=== PATIENT | male | born 1935 | race Caucasian/White ===

== ENCOUNTER → 2018-05-26 | Outpatient (CLI) | payer MEDICARE, BC ==
[~2018-05-26] MED LIST: ASPI-515 PO; ATOR10TA PO; CLON0.1T PO; CLON0.3T47 PO; LISI40TA PO; LISI5TAB7 PO; METO25TA35 PO; MULT-257 PO
== END | disposition home or self-care (01) ==
LOC: CVU 15:38
PROVIDERS: ATTEND Internal Medicine Cardiovascular Disease
DX: I65.21 Occlusion and stenosis of right carotid artery (principal); I10 Essential (primary) hypertension
CPT/HCPCS: 93880

== ENCOUNTER → 2018-05-27 | Outpatient (CLI) | payer MEDICARE, BC | END | disposition home or self-care (01) | LOC: CFH 15:06 | PROVIDERS: ATTEND Internal Medicine Cardiovascular Disease | DX: I34.0 Nonrheumatic mitral (valve) insufficiency (principal); I10 Essential (primary) hypertension; E78.5 Hyperlipidemia, unspecified; Z95.1 Presence of aortocoronary bypass graft; Z95.0 Presence of cardiac pacemaker; Z95.2 Presence of prosthetic heart valve | CPT/HCPCS: 93306 ==

== ENCOUNTER 2018-12-09 12:48 | Emergency (ER) | payer MEDICARE, BC ==
[~2018-12-09 12:48] MED LIST changes: -CLON0.1T PO; +CLON0.1T22 PO
--- NOTE | 2018-12-09 13:05 | NUR ---
EKG AT THE BEDSIDE
--- NOTE | 2018-12-09 13:11 | NUR ---
cxr at the bedside.
--- NOTE | 2018-12-09 13:13 | NUR ---
phlebotomy is at the bedside for blood sampling
[2018-12-09 13:42] LABS: ALBUMIN 4.2 g/dL (3.4-5.0); ANION GAP 4 mmol/L (5-15); CALCIUM 8.8 mg/dL (8.5-10.1); CHLORIDE 109 mmol/L (98-107); CREATININE 1.16 mg/dL (0.7-1.3)
[2018-12-09 13:43] LABS: BASOPHILS # (AUTO) 0.03 x10^3/uL (0-0.1); BASOPHILS % (AUTO) 0 % (0-1); EOSINOPHILS # (AUTO) 0.09 x10^3/uL (0-0.4); EOSINOPHILS % (AUTO) 1 % (1-7); LYMPHOCYTES # (AUTO) 0.88 x10^3/uL (1-3.4); LYMPHOCYTES % (AUTO) 12 % (22-44); MD NO; MEAN CORPUSCULAR HEMOGLOBIN 29.1 pg (27.5-34.5); MEAN CORPUSCULAR HGB CONC 32.4 g/dL (33.2-36.2); MEAN CORPUSCULAR VOLUME 89.8 fL (81-97); MEAN PLATELET VOLUME 8.5 fL (7.4-10.4); MONOCYTES # (AUTO) 0.66 x10^3/uL (0.2-0.8); MONOCYTES % (AUTO) 9 % (2-9); NEUTROPHILS # (AUTO) 5.65 x10^3/uL (1.8-6.8); NEUTROPHILS % (AUTO) 77 % (42-75); PLATELET COUNT 140 x10^3/uL (130-400); RED BLOOD COUNT 5.45 x10^6/uL (4.38-5.82); RED CELL DISTRIBUTION WIDTH 14.3 % (9.4-14.8)
[2018-12-09 13:46] LABS: TROPONIN I < 0.015 ng/mL (0.000-0.045)
[2018-12-09 14:31] VITALS: BP 161/84
== END 2018-12-09 14:32 | disposition home or self-care (01) ==
LOC: ED 13:18
DX: I11.9 Hypertensive heart disease without heart failure (principal); I25.2 Old myocardial infarction; Z95.1 Presence of aortocoronary bypass graft; Z95.0 Presence of cardiac pacemaker; Z95.4 Presence of other heart-valve replacement
CPT/HCPCS: 36415; 71045; 80048; 82040; 83880; 84484; 85025; 93005; 99284

== ENCOUNTER → 2020-02-21 | Outpatient (CLI) | payer MEDICARE, BC ==
[~2020-02-21] MED LIST changes: +CLON0.3T PO; -CLON0.3T47 PO
== END | disposition home or self-care (01) ==
LOC: CVU 13:09
PROVIDERS: ATTEND Surgery Vascular Surgery
DX: I65.23 Occlusion and stenosis of bilateral carotid arteries (principal)
CPT/HCPCS: 93880

== ENCOUNTER 2020-03-02 10:15 | Emergency (ER) | payer MEDICARE, BC ==
[~2020-03-02] VITALS: Ht 172.7 cm; Wt 75.0 kg
--- NOTE | 2020-03-02 10:46 | NUR ---
first contact with pt. per pt's daughter, pt is more confused, change in balance recently. pt's pmd suspects hydrocephalus and oldered mri for pt but it takes a long time untill robert date. pt's daughter would like to make sure pt's is ok. hx of dementia, but pt's aox4. resps even and unlabored. bp/spo2 monitors in place. call lightwithin reach. edmd at bedside evaluating at this time.
[2020-03-02] MEDS ORDERED: SERT50TA28 PO (10:49)
[2020-03-02] MEDS ORDERED: ASPI-515 PO (10:50)
[2020-03-02] MEDS ORDERED: MEMA10TA PO (10:50)
[2020-03-02] MEDS ORDERED: CHOL10003 PO (10:51)
[2020-03-02] MEDS ORDERED: ATOR40TA78 PO (10:51)
[2020-03-02] MEDS ORDERED: LISI-170 PO (10:51)
[2020-03-02] MEDS ORDERED: FURO20TA3 PO (10:52)
[2020-03-02] MEDS ORDERED: APIX5TAB PO (10:52)
[2020-03-02] MEDS ORDERED: CLON0.1T22 PO (10:52)
[2020-03-02] MEDS ORDERED: ACET-458 PO (10:53)
[2020-03-02] MEDS ORDERED: POTA10TA31 PO (10:53)
[2020-03-02] MEDS ORDERED: SENN1TAB59 PO (10:54)
--- NOTE | 2020-03-02 10:54 | NUR ---
pt to ct at this time.
--- NOTE | 2020-03-02 11:04 | NUR ---
pt back to room from ct at this time.
[2020-03-02 11:28] LABS: BASOPHILS # (AUTO) 0.02 x10^3/uL (0-0.1); BASOPHILS % (AUTO) 0 % (0-1); EOSINOPHILS # (AUTO) 0.16 x10^3/uL (0-0.4); EOSINOPHILS % (AUTO) 2 % (1-7); LYMPHOCYTES # (AUTO) 0.76 x10^3/uL (1-3.4); LYMPHOCYTES % (AUTO) 11 % (22-44); MD NO; MEAN CORPUSCULAR HEMOGLOBIN 29.2 pg (27.5-34.5); MEAN CORPUSCULAR HGB CONC 32.2 g/dL (33.2-36.2); MEAN CORPUSCULAR VOLUME 90.8 fL (81-97); MONOCYTES # (AUTO) 0.67 x10^3/uL (0.2-0.8); MONOCYTES % (AUTO) 10 % (2-9); NEUTROPHILS # (AUTO) 5.29 x10^3/uL (1.8-6.8); NEUTROPHILS % (AUTO) 77 % (42-75); PLATELET COUNT 145 x10^3/uL (130-400); RED BLOOD COUNT 5.23 x10^6/uL (4.38-5.82); RED CELL DISTRIBUTION WIDTH 15.4 % (9.4-14.8)
--- NOTE | 2020-03-02 11:46 | NUR ---
pt resting in [facility]. pt's aox4. resps even and unlabored. bp/spo2 monitors in place. call light within reach. pt's daughter at bedside.
--- NOTE | 2020-03-02 12:01 | NUR ---
i am assuming care of this pt from jorge (rn) while she has a lunch break. sbar was exchanged at the bedside.
[2020-03-02 12:09] LABS: ALBUMIN 3.3 g/dL (3.4-5.0); ANION GAP 8 mmol/L (5-15); CALCIUM 8.5 mg/dL (8.5-10.1); CHLORIDE 112 mmol/L (98-107); CREATININE 1.31 mg/dL (0.7-1.3)
[2020-03-02 12:37] VITALS: BP 125/68
--- NOTE | 2020-03-02 12:37 | NUR ---
pt using urinal at this time. pt stated"i don't know i can." pt and pt's daughter refused cath. edmd notified.
--- NOTE | 2020-03-02 13:19 | NUR ---
pt's straightcath'd using sterile technique. pt and pt's daughter agreed with this procedure. urine collected and ua sent.
[2020-03-02 13:28] LABS: MICROSCOPIC AUTO
--- NOTE | 2020-03-02 14:21 | NUR ---
Patient given discharge instructions and they have confirmed that they understand the instructions.
== END 2020-03-02 14:22 | disposition home or self-care (01) ==
LOC: ED 10:51
DX: F01.50 Vascular dementia, unspecified severity, without behavioral disturbance, psychotic disturbance, mood disturbance, and anxiety (principal); R26.89 Other abnormalities of gait and mobility; I25.10 Atherosclerotic heart disease of native coronary artery without angina pectoris; I48.91 Unspecified atrial fibrillation; I10 Essential (primary) hypertension; Z95.0 Presence of cardiac pacemaker
CPT/HCPCS: 36415; 70450; 80048; 81001; 82040; 85025; 99284

== ENCOUNTER 2020-05-15 06:05 | Day surgery (SDC) | payer MEDICARE, BC ==
[~2020-05-15] VITALS: Ht 172.7 cm; Wt 71.4 kg
[~2020-05-15 06:05] MED LIST changes: +ACET-458 PO; +APIX5TAB PO; +ATOR40TA78 PO; +CHOL10003 PO; +FURO20TA3 PO; +LISI-170 PO; +MEMA10TA PO; +POTA10TA31 PO; +SENN1TAB59 PO; +SERT50TA28 PO
[2020-05-15 06:44] VITALS: BP 143/76
[2020-05-15] MEDS ORDERED: AMLO-150 PO (06:56)
[2020-05-15] MEDS ORDERED: Metoprolol PO (06:57)
[2020-05-15 07:10] LABS: INTERNATIONAL NORMALIZED RATIO 1.27 (0.93-1.1); PROTHROMBIN TIME 13.4 Seconds (9.6-11.5)
[2020-05-15 07:12] LABS: CREATININE 1.12 mg/dL (0.7-1.3)
[2020-05-15 07:30] LABS: ANION GAP 4 mmol/L (5-15); CHLORIDE 110 mmol/L (98-107)
[2020-05-15] MEDS ORDERED: PROPOFOL 10 MG/ML, 20ML ONE (10:15)
== END 2020-05-15 09:30 | disposition home or self-care (01) ==
LOC: CVU 06:05 → CACL 09:30
PROVIDERS: ATTEND Internal Medicine Cardiovascular Disease
DX: I48.91 Unspecified atrial fibrillation (principal); I08.1 Rheumatic disorders of both mitral and tricuspid valves; I27.20 Pulmonary hypertension, unspecified; I25.10 Atherosclerotic heart disease of native coronary artery without angina pectoris; I65.23 Occlusion and stenosis of bilateral carotid arteries; I10 Essential (primary) hypertension; E78.49 Other hyperlipidemia; F03.90 Unspecified dementia, unspecified severity, without behavioral disturbance, psychotic disturbance, mood disturbance, and anxiety; E66.3 Overweight; Z68.25 Body mass index [BMI] 25.0-25.9, adult; Z79.01 Long term (current) use of anticoagulants; Z79.82 Long term (current) use of aspirin; Z79.899 Other long term (current) drug therapy; Z95.0 Presence of cardiac pacemaker; Z95.1 Presence of aortocoronary bypass graft; Z95.2 Presence of prosthetic heart valve
CPT/HCPCS: 36415; 80048; 85610; 92960; 93306; J2704

== ENCOUNTER 2020-06-02 15:46 | Emergency (ER) | payer MEDICARE, BC ==
[~2020-06-02] VITALS: Ht 175.3 cm; Wt 75.0 kg
[~2020-06-02 15:46] MED LIST changes: +AMLO-150 PO; +Metoprolol PO
--- NOTE | 2020-06-02 16:08 | NUR ---
THIS IS A 84 YEAR OLD FEMALE WHO WAS BIB BY DAUGHTER FROM A [facility]. PT HAD GLF X 4 DAYS AGO. C/O LBP AND LOWER BACK PAIN, O2 SATS AND B/P AT GROUP WHERE "LOW THIS AM". FAMILY CALLED CARDIOLOGY AND TOLD HIM TO COME TO ED. PT HAS HX OF PULMONARY EDEMA AND WAS CARDIOVERTED ON 05/15/2020, HAS ALSO HAS A PACEMAKER. PT PLACED ON FREIGHT TALLIER PACED, CONTIOUS SP02 AT 96%RA, AND CYCLE VS. DAUGHTER AT BS.
--- NOTE | 2020-06-02 16:22 | NUR ---
PT HAS DEMENTIA ALERT TO SELF ONLY
--- NOTE | 2020-06-02 17:23 | NUR ---
AT BEDSIDE TO EVALUATE PATIENT. Addendum: 06/02/20 at 1723 by [email or web address] DAUGHTER AT BEDSIDE WELL
[2020-06-02 17:44] LABS: BASOPHILS % (AUTO) 1 % (0-1); EOSINOPHILS % (AUTO) 0 % (1-7); LYMPHOCYTES % (AUTO) 8 % (22-44); MEAN CORPUSCULAR HEMOGLOBIN 29.8 pg (27.5-34.5); MEAN PLATELET VOLUME 8.3 fL (7.4-10.4); MONOCYTES % (AUTO) 11 % (2-9); NEUTROPHILS % (AUTO) 80 % (42-75); PLATELET COUNT 166 x10^3/uL (130-400); RED BLOOD COUNT 4.05 x10^6/uL (4.38-5.82); RED CELL DISTRIBUTION WIDTH 15.1 % (9.4-14.8)
--- NOTE | 2020-06-02 17:45 | NUR ---
PT TO CT. DAUGHTER IN ROOM
[2020-06-02 17:56] LABS: ALANINE AMINOTRANSFERASE 39 U/L (12-78); ALBUMIN 3.7 g/dL (3.4-5.0); ANION GAP 5 mmol/L (5-15); CALCIUM 8.8 mg/dL (8.5-10.1); CHLORIDE 110 mmol/L (98-107)
[2020-06-02 17:59] LABS: ALKALINE PHOSPHATASE 72 U/L (45-117); BILIRUBIN,TOTAL 0.8 mg/dL (0.2-1.0); CREATININE 1.39 mg/dL (0.7-1.3); TOTAL PROTEIN 6.7 g/dL (6.4-8.2)
[2020-06-02] MEDS ORDERED: SODIUM CHLORIDE 0.9% 1,000ML IVBOLUS ONE (18:00)
[2020-06-02 18:03] LABS: MD NO
[2020-06-02] MEDS ORDERED: SODIUM CHLORIDE FLUSH 10ML SYR IVF ONE (18:30)
--- NOTE | 2020-06-02 18:42 | NUR ---
PATIENTS DAUGHTER WAS CONCERNED REGARDING THE BRUISES ON HIS LEG AND BOTTOM. PT STATED HE FELL AND THAT IS WHERE THE BRUISES CAME FROM. THERE IS A LARGE BRUISE ON THE LEFT THIGH AND TWO SMALL BRUISES ON THE BUTTOCKS.
--- NOTE | 2020-06-02 18:50 | NUR ---
REPORT FROM NICHOLAS QUIROZ. PT CARE ASSUMED.
[2020-06-02 19:21] VITALS: BP 133/55
--- NOTE | 2020-06-02 19:21 | NUR ---
ERP AT BEDSIDE.
== END 2020-06-02 20:30 | disposition home or self-care (01) ==
LOC: ED 16:15
DX: S70.12XA Contusion of left thigh, initial encounter (principal); S09.90XA Unspecified injury of head, initial encounter; I95.2 Hypotension due to drugs; R10.30 Lower abdominal pain, unspecified; M54.5 Low back pain; I10 Essential (primary) hypertension; I25.2 Old myocardial infarction; I25.10 Atherosclerotic heart disease of native coronary artery without angina pectoris; I48.91 Unspecified atrial fibrillation; E78.00 Pure hypercholesterolemia, unspecified; E78.5 Hyperlipidemia, unspecified; Z95.0 Presence of cardiac pacemaker; W01.0XXA Fall on same level from slipping, tripping and stumbling without subsequent striking against object, initial encounter; Y93.89 Activity, other specified; Y92.89 Other specified places as the place of occurrence of the external cause; Y99.8 Other external cause status
CPT/HCPCS: 36415; 70450; 71045; 72110; 72190; 80053; 85025; 93005; 99285

== ENCOUNTER 2020-08-23 18:40 | Emergency (ER) | payer MEDICARE, BC ==
[~2020-08-23] VITALS: Ht 175.3 cm; Wt 73.0 kg
[~2020-08-23 18:40] MED LIST changes: -ASPI-515 PO; +ASPI-963 PO; -LISI40TA PO; +LISI40TA9 PO
[2020-08-23 18:42] VITALS: BP 97/55
[2020-08-23] MEDS ORDERED: SERT50TA28 PO (19:14)
[2020-08-23] MEDS ORDERED: ALPR0.254 PO (19:14)
--- NOTE | 2020-08-23 19:36 | NUR ---
XRAY AT BEDSIDE A THIS TIME
--- NOTE | 2020-08-23 20:49 | NUR ---
Patient/Caregiver given discharge instructions and they have confirmed that they understand the instructions. Patient wheeled to dc desk with daughter
== END 2020-08-23 21:02 | disposition home or self-care (01) ==
LOC: ED 19:27
DX: S50.11XA Contusion of right forearm, initial encounter (principal); I48.91 Unspecified atrial fibrillation; W18.30XA Fall on same level, unspecified, initial encounter; Y93.89 Activity, other specified; Y92.009 Unspecified place in unspecified non-institutional (private) residence as the place of occurrence of the external cause; Y99.8 Other external cause status
CPT/HCPCS: 99283

== ENCOUNTER 2020-08-25 13:36 | Emergency (ER) | payer MEDICARE, BC ==
[~2020-08-25] VITALS: Ht 172.7 cm; Wt 70.0 kg
[~2020-08-25 13:36] MED LIST changes: +ALPR0.254 PO
--- NOTE | 2020-08-25 13:59 | NUR ---
REPORT OF PT TO NICHOLAS MANE. ALL QUESTIONS ANSWERED.
--- NOTE | 2020-08-25 14:19 | NUR ---
ASSUMED CARE OF PT FROM NICHOLAS LINK. PT RESTING IN [facility], MONITORING IN PLACE, DAINA AT THIS TIME, DAUGHTER AT BEDSIDE, SHERRIE.
[2020-08-25 16:22] VITALS: BP 123/69
--- NOTE | 2020-08-25 16:35 | NUR ---
PT ASSISTED TO RESTROOM AT THIS TIME, PT CLEANED AND PROVIDED NEW DEPEND AND PANTS.
--- NOTE | 2020-08-25 17:06 | NUR ---
AT BEDSIDE TO DC PT FOR PRIMARY RNHYUN. PT AND DAUGHTER VERBALIZED UNDERSTANDING TO DC INSTRUCTIONS. WHEELED TO CHECKOUT TO FACILITATE COMFORT.
== END 2020-08-25 17:10 | disposition home or self-care (01) ==
LOC: ED 14:21
DX: S50.11XA Contusion of right forearm, initial encounter (principal); S09.90XA Unspecified injury of head, initial encounter; I48.91 Unspecified atrial fibrillation; I25.2 Old myocardial infarction; I10 Essential (primary) hypertension; I25.10 Atherosclerotic heart disease of native coronary artery without angina pectoris; E78.5 Hyperlipidemia, unspecified; Z95.0 Presence of cardiac pacemaker; Z79.899 Other long term (current) drug therapy; X58.XXXA Exposure to other specified factors, initial encounter; Y93.89 Activity, other specified; Y92.89 Other specified places as the place of occurrence of the external cause; Y99.8 Other external cause status
CPT/HCPCS: 70450; 72125; 99285

== ENCOUNTER 2020-09-03 17:42 | Emergency (ER) | payer MEDICARE, BC ==
[~2020-09-03] VITALS: Ht 175.3 cm; Wt 72.0 kg
[2020-09-03 18:18] LABS: BASOPHILS % (AUTO) 1 % (0-1); EOSINOPHILS % (AUTO) 3 % (1-7); LYMPHOCYTES % (AUTO) 8 % (22-44); MD NO; MEAN CORPUSCULAR HEMOGLOBIN 31.3 pg (27.5-34.5); MEAN PLATELET VOLUME 7.5 fL (7.4-10.4); MONOCYTES % (AUTO) 10 % (2-9); NEUTROPHILS % (AUTO) 77 % (42-75); PLATELET COUNT 206 x10^3/uL (130-400); RED BLOOD COUNT 4.03 x10^6/uL (4.38-5.82); RED CELL DISTRIBUTION WIDTH 14.2 % (9.4-14.8)
--- NOTE | 2020-09-03 18:21 | NUR ---
85 YO M BIB DAUGHTER AFTER PT FELL AND HIT HEAD AT RETIREMENT. PT ON BLOOD THINNERS (ELIQUIS) AND HAS MULIPLE FALLS THIS LAST YEAR. DK BURGESS HAS BEEN AT BEDSIDE FOR EVALUATION. NADN. PER DAUGHTER PT AT [facility] (HX DEMENTIA) THIS RN NOTED UNEQUAL PUPILS AND ALERTED DK BURGESS. NO NEW ORDERS, PATIENT GOING FOR STAT HEAD CT.
[2020-09-03 18:30] LABS: ALANINE AMINOTRANSFERASE 20 U/L (12-78); ALBUMIN 3.4 g/dL (3.4-5.0); ANION GAP 6 mmol/L (5-15); CALCIUM 8.6 mg/dL (8.5-10.1); CHLORIDE 107 mmol/L (98-107); CREATININE 1.28 mg/dL (0.7-1.3)
[2020-09-03 18:32] LABS: ALKALINE PHOSPHATASE 150 U/L (45-117); BILIRUBIN,TOTAL 0.9 mg/dL (0.2-1.0); TOTAL PROTEIN 6.9 g/dL (6.4-8.2)
--- NOTE | 2020-09-03 18:56 | NUR ---
REPORT FROM LUCAS PETERSON. PT RESTING IN BED AND HAS NO NEEDS AT THIS TIME. CALL LIGHT IN REACH
--- NOTE | 2020-09-03 18:58 | NUR ---
report given to Phyllis PETERSON.
[2020-09-03] MEDS ORDERED: NEOSPORIN OINT. PKT 1 PACKET ONE (20:02)
[2020-09-03 20:09] VITALS: BP 117/72
--- NOTE | 2020-09-03 20:09 | NUR ---
Caregiver given discharge instructions and they have confirmed that they understand the instructions. Patient taken out by wheelchair.
== END 2020-09-03 20:11 | disposition home or self-care (01) ==
LOC: ED 18:49
DX: S00.81XA Abrasion of other part of head, initial encounter (principal); S09.90XA Unspecified injury of head, initial encounter; R94.31 Abnormal electrocardiogram [ECG] [EKG]; W18.30XA Fall on same level, unspecified, initial encounter; Y93.89 Activity, other specified; Y92.89 Other specified places as the place of occurrence of the external cause; Y99.8 Other external cause status
CPT/HCPCS: 36415; 70450; 80053; 85025; 93005; 99285

== ENCOUNTER 2021-03-11 13:31 | Emergency (ER) | payer MEDICARE, BC ==
[~2021-03-11] VITALS: Ht 175.3 cm; Wt 66.2 kg
[2021-03-11] MEDS ORDERED: DEXTROSE 10% 1,000 ML IV STA (13:47)
[2021-03-11] MEDS ORDERED: MORPHINE SULFATE 4 MG/ML, 1ML IVPush PRN (14:00)
[2021-03-11] MEDS ORDERED: PLEASE ENTER HEIGHT AND WEIGHT MC SCH (14:00)
[2021-03-11] MEDS ORDERED: SODIUM CHLORIDE 0.9% 1,000ML IVBOLUS ONE ×2 (14:00→15:00)
[2021-03-11] MEDS ORDERED: DEXTROSE 10% 1,000 ML IV ONE (14:30)
[2021-03-11] MEDS ORDERED: ASPI81TA45 PO (14:46)
[2021-03-11] MEDS ORDERED: FURO40TA6 PO (14:46)
[2021-03-11] MEDS ORDERED: SPIR25TA PO (14:46)
[2021-03-11] MEDS ORDERED: AMIO200T42 PO (14:46)
[2021-03-11] MEDS ORDERED: QUET25TA5 PO (14:46)
[2021-03-11] MEDS ORDERED: ACET325T26 PO (14:46)
[2021-03-11] MEDS ORDERED: DIVA125T2 PO (14:46)
[2021-03-11] MEDS ORDERED: CHOL10003 PO (14:46)
[2021-03-11] MEDS ORDERED: METO25TA35 PO (14:56)
[2021-03-11 15:10] LABS: ALANINE AMINOTRANSFERASE 70 U/L (12-78); ALBUMIN 2.5 g/dL (3.4-5.0); ANION GAP 17 mmol/L (5-15); CALCIUM 8.8 mg/dL (8.5-10.1); CHLORIDE 117 mmol/L (98-107)
[2021-03-11 15:13] LABS: ALKALINE PHOSPHATASE 160 U/L (45-117); TOTAL PROTEIN 7.4 g/dL (6.4-8.2)
[2021-03-11 15:42] LABS: BASOPHILS % (AUTO) 1 % (0-1); EOSINOPHILS % (AUTO) 0 % (1-7); LYMPHOCYTES % (AUTO) 4 % (22-44); MEAN CORPUSCULAR HEMOGLOBIN 29.6 pg (27.5-34.5); MEAN CORPUSCULAR HGB CONC 31.7 g/dL (33.2-36.2); MEAN PLATELET VOLUME 8.3 fL (7.4-10.4); MONOCYTES % (AUTO) 7 % (2-9); NEUTROPHILS % (AUTO) 89 % (42-75); RED BLOOD COUNT 5.11 x10^6/uL (4.38-5.82); RED CELL DISTRIBUTION WIDTH 15.8 % (9.4-14.8)
[2021-03-11 15:50] LABS: PLATELET COUNT 43 x10^3/uL (130-400)
[2021-03-11] MEDS ORDERED: LORazepam 2 MG/ML, 1ML IVPush ONE (16:30)
[2021-03-11] MEDS ORDERED: MORPHINE SULFATE 4 MG/ML, 1ML ONE ×2 (16:53→17:21)
[2021-03-11] MEDS ORDERED: LORazepam 2 MG/ML, 1ML ONE (16:54)
[2021-03-11] MEDS: MORPHINE SULFATE 4 MG/ML, 1ML IVPush PRN ×2 (17:04→17:48)
[2021-03-11 17:48] LABS: MICROSCOPIC INDICATED
[2021-03-11 17:54] VITALS: BP 124/74
[2021-03-11] MEDS ORDERED: CEFTRIAXONE 1,000 MG IV ONE (18:00)
== END 2021-03-11 17:57 | disposition home or self-care (01) ==
LOC: ED 17:52
DX: R41.82 Altered mental status, unspecified (principal); I48.92 Unspecified atrial flutter; E86.0 Dehydration; N17.9 Acute kidney failure, unspecified; R73.9 Hyperglycemia, unspecified; E87.5 Hyperkalemia; E87.0 Hyperosmolality and hypernatremia; I25.10 Atherosclerotic heart disease of native coronary artery without angina pectoris; E78.00 Pure hypercholesterolemia, unspecified; I10 Essential (primary) hypertension
CPT/HCPCS: 71045; 80053; 81001; 82962; 83605; 85025; 87040; 87077; 87086; 93005; 96361; 96374; 96375; 96376; 99285; J0696; J2060; J2270; J7030; 87186